=== PATIENT | male | born 1980 | race Caucasian/White ===

== ENCOUNTER 2017-08-05 04:28 | Emergency (ER) | payer OTHER ==
[~2017-08-05] VITALS: Ht 185.4 cm; Wt 100.0 kg
[2017-08-05 04:35] VITALS: TEMP 98.3
[2017-08-05] MEDS ORDERED: PRILOSEC10 MG PO (05:12)
[2017-08-05 06:08] VITALS: BP 114/84; PULSE 90
== END 2017-08-05 06:08 | disposition home or self-care (01) ==
LOC: COL.ER 04:28
DX: R04.0 Epistaxis (principal); K21.9 Gastro-esophageal reflux disease without esophagitis